=== PATIENT | male | born 1935 | race Caucasian/White ===

== ENCOUNTER 2021-10-03 22:30 | Emergency (ER) | payer MEDICARE, SELFPAY ==
--- NOTE | ~2021-10-03 | XR_ITS ---
EXAMINATION: XR elbow RT min 3V, XR humerus RT DATE: 10/03/2021 23:06 INDICATION: Pain and swelling at the distal right upper arm and elbow post fall TECHNIQUE: 1. Anteroposterior and lateral views of the right humerus were obtained. 2. Anteroposterior, two oblique and lateral views of the right elbow were obtained. COMPARISON: None. FINDINGS: Transverse supracondylar fracture of the distal right humerus with 2 cm medial and 1 cm anterior disp lacement with varying degrees of posterior angulation depending on the degree of flexion of the arm. Normal alignment at the right shoulder. 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 Soft tissue swelling about the elbow. 4 -5 mm round lytic lesion with cortical scalloping at the proximal right radial diaphysis. Soft tissue s are unremarkable. IMPRESSION: 1. Displaced supracondylar fracture of the distal right humerus. 2. 4-5 mm lytic lesion at the proximal right radial diaphysis which could represent a vascular channe l but raises some suspicion for multiple myeloma. Dr. Moore discussed these findings with Dr. Kris fierro at 8:50 AM. Reviewed, dictated and finalized at location A. IMPRESSION: 1. Displaced supracondylar fracture of the distal right humerus. 2. 4-5 mm lytic lesion at the proximal right radial diaphysis which could repre sent a vascular channel but raises some suspicion for multiple myeloma. Dr. Shalini correa discussed these findings with Dr. Guerrero at 8:50 AM.
[2021-10-03 22:34] VITALS: BP 171/59; PULSE 75; RESP 18; TEMP 36.7; O2SAT 96
--- NOTE | 2021-10-03 23:30 | PC.NURSE ---
Pt reports he fell while walking in his hallway, attempted to reach for side busch but ended up falling on outstretched hands.
[2021-10-03] MEDS: MORPHINE SULFATE (*CRX) 4 MG/ML INJ IV PUSH (23:42)
--- NOTE | 2021-10-03 23:46 | ED.GENADULT ---
HPI - General Adult General Chief complaint: Extremity Injury, Upper Stated complaint: Fall with R elbow deformity Time Seen by Provider: 10/03/21 23:25 History of Present Illness HPI narrative: Patient 85-year-old gentleman who presents emerged department with plaint of right elbow pain. The patient states that he was walking on the hallway tripped and fell landed on an outstretched hand. Patient reports no laceration no loss of consciousness denies neck pain patient denies being on blood thinners patient reports a history of high cholesterol and is on metformin. Related Data Allergies Allergy/AdvReac Type Severity Reaction Status Date / Time No Known Allergies Allergy Verified 10/03/21 22:44 Review of Systems Review of Systems: A 10 system review of systems was completed on the patient and is negative except for what is stated in the HPI. Nursing and ancillary documentation was reviewed. PMFSH Comments High cholesterol Exam Narrative: GENERAL: Well-appearing, well-nourished, and in no acute distress. HEAD: Normocephalic, atraumatic. EYES: PERRLA and EOMI. ENT: Nares clear, no rhinorrhea or epistaxis. Mucous membranes moist. NECK: Supple. CHEST: Clear to auscultation. No respiratory distress. HEART: Regular rate and rhythm. No murmur heard. Normal peripheral pulses. ABDOMEN: Soft, nontender, nondistended, normal active bowel sounds. EXTREMITIES: Decreased range of motion of the right upper extremity. There is a deformity of the distal humerus, no laceration, full range of motion distal to the injury intact pulses distal to the injury and good capillary refill SKIN: Warm, dry, no rash. NEURO: No focal deficits. Alert and oriented x3. PSYCH: Normal mood and affect. Course Course Emergency Course: Plain film x-ray of the right elbow showed a displaced distal humerus fracture Case was discussed with the on-call orthopedic surgeon in our facility who after reviewing the films felt the patient would be better served with a facility that has Ortho trauma service. The patient has had prior orthopedic surgeries with [facility] family requested to go to [place] the case was discussed with the transfer center and the patient was accepted to the emergency department as a level 3 geriatric trauma Vital Signs Vital signs: Vital Signs Temperature 36.7 C 10/03/21 22:34 Pulse Rate 75 10/03/21 22:34 Respiratory Rate 18 10/03/21 22:34 Blood Pressure 171/59 H 10/03/21 22:34 Pulse Oximetry 96 10/03/21 22:34 Oxygen Delivery Room Air 10/03/21 22:34 Temperature 36.7 C 10/03/21 22:34 Pulse Rate 75 10/03/21 22:34 Respiratory Rate 18 10/03/21 22:34 Blood Pressure 171/59 H 10/03/21 22:34 Pulse Oximetry 96 10/03/21 22:34 Oxygen Delivery Room Air 10/03/21 22:34 Medical Decision Making Vital Signs Vital Signs: Vital Signs Temperature 36.7 C 10/03/21 22:34 Pulse Rate 75 10/03/21 22:34 Respiratory Rate 18 10/03/21 22:34 Blood Pressure 171/59 H 10/03/21 22:34 Pulse Oximetry 96 10/03/21 22:34 Oxygen Delivery Room Air 10/03/21 22:34 Temperature 36.7 C 10/03/21 22:34 Pulse Rate 75 10/03/21 22:34 Respiratory Rate 18 10/03/21 22:34 Blood Pressure 171/59 H 10/03/21 22:34 Pulse Oximetry 96 10/03/21 22:34 Oxygen Delivery Room Air 10/03/21 22:34 Discharge Plan Discharge Clinical Impression: Fracture of distal end of humerus Patient Disposition: Acute Care Hospital Condition: Stable Follow-up/Referrals: Cindy,Jordi Coreas MD [Primary Care Provider] - Time of Disposition: 23:51
[2021-10-03 23:54] LABS: Basophils Absolute Auto 0.1 K/mm3 (0.0-0.1); Basophils Percent Auto 0.5 % (0.2-1.2); Eosinophils Absolute Auto 0.3 K/mm3 (0-0.3); Hematocrit 40.6 % (42.0-52.0); Hemoglobin 13.2 g/dL (14.0-18.0); Immature Granulocyte Absolute 0.06 K/mm3 (0.00-0.031); Immature Granulocyte Percent A 0.6 % (0-0.5); Lymphocytes Absolute Auto 2.51 K/mm3 (0.9-3.2); Lymphocytes Percent Auto 23.2 % (18.3-44.2); Mean Corpuscular HGB Conc 32.5 g/dl (32-36); Mean Corpuscular Hemoglobin 29.4 pg (26-34); Mean Corpuscular Volume 90.4 fl (80-100); Mean Platelet Volume 9.6 fl (7.4-10.4); Monocytes Absolute Auto 0.9 K/mm3 (0.1-0.6); Monocytes Percent Auto 8.2 % (2.6-8.5); Neutrophils Percent Auto 64.5 % (45.5-73.1); Platelet Count Result 226 k/mm3 (150-375); Red Blood Count 4.49 M/mm3 (4.6-6.20); White Blood Count 10.8 K/mm3 (4.5-10.0)
--- NOTE | 2021-10-03 23:55 | PC.NURSE ---
Report to Hussain sidhu [facility]. [place] ETA 0100 for transport.
[2021-10-04] LABS: Alanine Aminotransferase 22 U/L (6-50); Albumin Level 4.5 g/dL (3.5-5.1); Alkaline Phosphatase 44 U/L (38-126); Anion Gap 9 mmol/L (8-16); Aspartate Amino Transferase 24 U/L (17-59); Bilirubin,Total 0.3 mg/dL (0.2-1.3); Blood Urea Nitrogen 18 mg/dL (9-20); Calcium 9.1 mg/dL (8.4-10.2); Carbon Dioxide 27 mmol/L (22-30); Chloride 104 mmol/L (98-107); Estimated Glomerular Filt Rate > 60; Glucose 153 mg/dL (65-110); Potassium 4.2 mmol/L (3.4-5.0); Sodium 140 mmol/L (137-145)
[2021-10-04 00:01] LABS: Prothrombin Time 13.1 Seconds (11.1-14.7)
[2021-10-04 00:22] VITALS: BP 179/82; PULSE 68; RESP 17; O2SAT 98
== END 2021-10-04 01:35 | disposition short-term general hospital (02) ==
LOC: ANHED 23:54
PROVIDERS: Emergency Provider Emergency Medicine; PCP Internal Medicine
DX: S42.411A Displaced simple supracondylar fracture without intercondylar fracture of right humerus, initial encounter for closed fracture (principal); M89.9 Disorder of bone, unspecified; E78.00 Pure hypercholesterolemia, unspecified; Z79.84 Long term (current) use of oral hypoglycemic drugs; W01.0XXA Fall on same level from slipping, tripping and stumbling without subsequent striking against object, initial encounter
CPT/HCPCS: 29105; 36415; 73060; 73080; 80053; 85025; 85610; 85730; 99284; 99285; J2270